=== PATIENT | female | born 1945 | race Caucasian/White ===

== ENCOUNTER → 2016-04-11 | Outpatient (CLI) | payer MEDICARE, BC | END | disposition home or self-care (01) | LOC: RAD.S 10:10 | DX: Z12.31 Encounter for screening mammogram for malignant neoplasm of breast (principal) ==

== ENCOUNTER 2016-07-22 21:45 | Emergency (ER) | payer MEDICARE, BC ==
--- NOTE | 2016-07-23 03:19 | ER ---
ADMIT: 07/22/2016 RM/LOC: ER [facility] MR#: [id number] [id number] FAY KIMMCKENZIE Moraes [address] [facility] [place] [address] Emergency Room Report SEX: F AGE: 71 : 1945 DATE: 07/22/2016 The patient is a 71-year-old female, walking with her when they came across a large mixed breed dog that was being walked by female. Dog was on a lead, but broke away from the woolen tester and attacked the woman unprovoked, bit her right forearm. Animal Control did investigate. Exam remarkable for nontoxic, afebrile female with 2 bite puncture wound tears right forearm dorsal and volar aspect. No foreign body noted. Wound anesthetized, Xylocaine 1%, thoroughly irrigated, closed with 4-0 Prolene x1, bacitracin and dressing. Total length of wound 3 cm. Augmentin 875 p.o. in department and b.i.d. x10 days. Follow up Dr. Arambula 7 to 10 days suture removal. Tdap 0.5 mL IM in department. Moy Brizuela MD/ rashid JOB #: [id number] CC: Moy Brizuela MD, Attending Physician Blayne Arambula DO
== END 2016-07-23 00:41 | disposition home or self-care (01) ==
LOC: ER 21:45
DX: S51.851A Open bite of right forearm, initial encounter (principal); E11.9 Type 2 diabetes mellitus without complications; I10 Essential (primary) hypertension; E78.5 Hyperlipidemia, unspecified; Z87.442 Personal history of urinary calculi; Z23 Encounter for immunization; Z88.5 Allergy status to narcotic agent; Z79.899 Other long term (current) drug therapy; W54.0XXA Bitten by dog, initial encounter; Y93.01 Activity, walking, marching and hiking